=== PATIENT | female | born 1985 | race Caucasian/White ===

== ENCOUNTER 2021-04-21 11:01 | Outpatient (CLI) | payer MEDICAID, SELFPAY ==
--- NOTE | 2021-04-21 11:27 | MM_ITS ---
WS: [id number] BILATERAL SCREENING DIGITAL MAMMOGRAM WITH CAD HISTORY: SCREENING COMPARISON: None available. Bilateral CC and MLO views submitted. Computer aided detection analyzed. Breast composition: There are scattered areas of fibroglandular density. No suspicious masses, microc alcifications or architectural distortion. MM/[id number] IMPRESSION: BI-RADS: 1-Negative FOLLOW UP: 1 Year Follow-up
== END 2021-04-21 11:02 | disposition home or self-care (01) ==
LOC: RADSHAW 11:19
PROVIDERS: Visit Provider Nurse Practitioner Family
DX: Z12.31 Encounter for screening mammogram for malignant neoplasm of breast (principal)
CPT/HCPCS: 77067

== ENCOUNTER 2025-02-18 00:39 | Emergency (ER) | payer BC, MEDICAID, SELFPAY ==
[2025-02-18 00:49] VITALS: BP 120/61; PULSE 105; RESP 16; TEMP 36.4; O2SAT 100; BMI 34.3
[2025-02-18 03:54] VITALS: BP 139/92; PULSE 97; O2SAT 100
[2025-02-18 04:00] VITALS: BP 146/86; PULSE 99; O2SAT 96
--- NOTE | 2025-02-18 04:23 | ECG_ITS ---
[employer] [facility] Test Date: 2025-02-18 Pat Name: Jigna Huynh Department: Room: Gender: Female Field Service Coordinator: : 1985 Requested By: Jun Lin Order Number: [id number] Will MD: Gely Madrid M.D. Measurements Intervals [place] Rate: 68 P: 50 SD: 159 QRS: 35 QRSD: 114 T: 25 QT: 458 QTc: 491 Interpretive Statements SINUS RHYTHM WITH SINUS ARRHYTHMIA INCOMPLETE RIGHT BUNDLE BRANCH BLOCK [90+ ms QRS DURATION, TERMINAL R IN V1/V2, 40+ ms S IN I/aVL/V4/V5/V6] NONSPECIFIC T-WAVE ABNORMALITY PROLONGED QT INTERVAL No previous ECG available for comparison Electronically Signed On 02-19-2025 18:48:22 [employer]ASTE D[employer]ER by Gely Madrid M.D. [email or web address]
--- NOTE | 2025-02-18 04:28 | ED_ITS ---
HPI - Allergic Reaction 2 General: Chief complaint: Allergic Reaction Stated complaint: stated histamine attack. passed out Time Seen by Provider: 02/18/25 03:50 History of Present Illness: HPI narrative: 40-year-old female with no known past me dical history, presenting to the emergency department with an episode of loss of consciousness. Reports that around 6 PM she had a meal containing egg nog with ROM, as well as other food that she has consumed in the past, she went to bed around 11 PM after a shower and felt an acute onset of symptoms that she describes as rapid heartbeat, lightheadedness, floaters in her vision, diffuse shaking, she went to the bathroom and felt acutely lightheaded, lost consciousness. Her heard a thud, and found her unconscious leaning against the wall with vomit in her mouth, loss of consciousness short duration less than 1 minute with rapid return to normal baseline mental status, patient reports 2 episodes of watery diarrhea after the event, she does report a history over the past 2 years of other similar events although none caused full loss of consciousness and has not been evaluated by a doctor prior, she has no known history of drug allergies or arrhythmia other than mitral valve prolapse which has not been intervened on or required any significant management, she currently feels generally worn out but no other symptoms, she denies abdominal pain, she denies headache. Related Data Allergies Allergy/AdvReac Type Severity Reaction Status Date / Time No Known Allergies Allergy Verified 02/18/25 00:55 Physical Exam 2 Narrative: EXAM NARRATIVE: Gen: A&Ox4, no acute distress, nontoxic appearing HEENT: Normocephalic, atraumatic, no scleral icterus, external ears normal, moist mucous membranes Neck: Supple, full range of motion, no observable masses Lungs: No Respiratory distress, Lungs clear to auscultation bilaterally no rales, rhonchi, wheezing CV: Regular rate and rhythm, no murmur, no pitting edema to lower extremities bilaterally Abdomen: Soft, nondistended, nontender to palpation MSK: No joint swelling, FROM all 4 extremities Skin: No rashes, petechiae, lesions. Normal color per patient. Neuro: Alert and oriented, no slurred speech, sensation and strength grossly intact all 4 extremities Psych: Appropriate for situation. Course 2 Reevaluation(s): Reevaluation #1: Patient reevaluated, feels well, blood work showing nonspecific leukocytosis to 16, otherwise blood work normal with normal kidney function and liver function, EKG showing sinus rhythm with a sinus arrhythmia, incomplete right bundle unclear if new or old, will recommend patient follow-up with PCP for this finding for monitoring, stable for discharge with outpatient follow-up, monitoring of symptoms, return precautions. Time: 05:44 Vital Signs: Vital signs: Vital Signs Temperature 97.5 F L 02/18/25 00:49 Pulse Rate 97 02/18/25 03:54 Respiratory Rate 16 02/18/25 00:49 Blood Pressure 139/92 02/18/25 03:54 Pulse Oximetry 100 02/18/25 03:54 Oxygen Delivery Me thod Room Air 02/18/25 03:54 MDM - Allergic Reaction Medical Decision Making 40-year-old female with no significant past medical history presenting to the emergency department with an episode of loss of consciousness that she attributed to a possible allergic reaction or histamine release phenomenon, she reports episodes in the past over the last couple of years that did not lead to full loss of consciousness which were never fully medically evaluated. This evening she developed loss of consciousness with a prodrome, an episode of vomiting during the event and 2 episodes of diarrhea thereafter, rapid return to baseline mental status with no neurologic deficits, she currently feels worn out but is otherwise asymptomatic, her physical exam is benign, her EKG does not show signs of significant arrhythmia other than a minor sinus arrhythmia, she does have an incomplete right bundle branch block, her QT is mildly prolonged at 476 but not markedly so to the point where she would be at risk for malignant tachyarrhythmia, plan for IV hydration, check labs to rule out electrolyte derangements or AXEL, would anticipate recommending increased hydration, follow- up with PCP as well as referral to outpatient cardiology for evaluation. Lab Data Labs showing leukocytosis, no anemia, normal electrolytes, normal kidney function, normal liver function 02/18/25 04:49 02/18/25 04:49 Laboratory Results WBC 16.93 10^3/uL (3.29-11.43) H 02/18/25 04:49 RBC 4.43 10^6/uL (3.85-5.65) 02/18/25 04:49 Hgb 12.90 g/dL (11.27-16.99) 02/18/25 04:49 Hct 38.2 % (36-47) 02/18/25 04:49 MCV 86.2 fl (85-98) 02/18/25 04:49 MCH 29.1 pg (27-33) 02/18/25 04:49 MCHC 33.8 g/dL (30-55) 02/18/25 04:49 RDW 12.0 % (12.1-15.1) L 02/18/25 04:49 Plt Count 184 10^3/cmm (157-399) 02/18/25 04:49 MPV 8.0 fL (7.4-10.4) 02/18/25 04:49 Neut % (Auto) 87.7 % 02/18/25 04:49 Lymph % (Auto) 5.2 % 02/18/25 04:49 [place] % (Auto) 6.3 % 02/18/25 04:49 Eos % (Auto) 0.2 % 02/18/25 04:49 Baso % (Auto) 0.1 % 02/18/25 04:49 Neut # (Auto) 14.84 10^3/uL (1.8-7.7) H 02/18/25 04:49 Lymph # (Auto) 0.9 10^3/uL (0.8-4.8) 02/18/25 04:49 [place] # (Auto) 1.1 10^3/uL (0.2-0.9) H 02/18/25 04:49 Eos # (Auto) 0.0 10^3/uL (0.0-0.8) 02/18/25 04:49 Baso # (Auto) 0.0 10^3/uL (0.0-0.1) 02/18/25 04:49 Nucleated RBC % (auto) 0 % 02/18/25 04:49 Nucleated RBCs # 0.0 /100WBC 02/18/25 04:49 Sodium 141 mmol/L (136-145) 02/18/25 04:49 Potassium 4.1 mmol/L (3.5-5.1) 02/18/25 04:49 Chloride 106 mmol/L (98-107) 02/18/25 04:49 Carbon Dioxide 26 mmol/L (22-29) 02/18/25 04:49 Anion Gap 13.1 (5-19) 02/18/25 04:49 BUN 16 mg/dL (6-20) 02/18/25 04:49 Creatinine 0.6 mg/dL (0.5-0.9) 02/18/25 04:49 GFR Calculation 110.2 mL/min (90-130) 02/18/25 04:49 Glucose 108 mg/dL (65-115) 02/18/25 04:49 Calculated Osmolality 294 mOsm/kg (285-295) 02/18/25 04:49 Calcium 9.2 mg/dL (8.5-10.5) 02/18/25 04:49 Total Bilirubin 0.2 mg/dL (0.15-1.2) 02/18/25 04:49 AST 18 U/L (0-32) 02/18/25 04:49 ALT 17 U/L (0-33) 02/18/25 04:49 Alkaline Phosphatase 85 U/L (35-105) 02/18/25 04:49 Total Protein 6.9 g/dL (6.6-8.7) 02/18/25 04:49 Albumin 4.1 g/dL (3.5-5.2) 02/18/25 04:49 Globulin 2.8 g/dL (1.3-4.6) 02/18/25 04:49 No radiology studies performed this visit EKG Data EKG 1: I personally reviewed and interpreted this EKG as follows: EKG interpretation date: 02/18/25 EKG interpretation time: 04:23 Interpretation: Sinus rhythm at 60 bpm with sinus arrhythmia, no STEMI, incomplete right bundle branch block, mildly prolonged QT interval QTc 476, normal axis Discharge Plan Discharge Patient Disposition: Home Clinical Impression: Right bundle branch block Syncope Qualifiers: Syncope type: unspecified Qualified Code(s): R55 - Syncope and collapse Leukocytosis Qualifiers: Leukocytosis type: unspecified Qualified Code(s): D72.829 - Elevated white blood cell count, unspecified Condition: Stable Discharge Orders: Discharge ED (Routine); Ordered 02/18/25 Ordered By: Jun Lin Referrals: Gaona,Amalia, [facility] [Primary Care Provider, Nurse Practitioner] Patient Instructions: Patient Portal & Aranza Instructions, Syncope (DC) Print Language: Mongolian Coding Level of Care Code ED Forest Officer for [facility]
[2025-02-18 04:30] VITALS: BP 101/58; PULSE 53; O2SAT 100
[2025-02-18] MEDS: ondansetron 2 mg/ML SDV 2 mL 4 MG IVP (04:54)
[2025-02-18 05:00] VITALS: BP 118/76; PULSE 58; O2SAT 100
[2025-02-18 05:07] LABS: Hematocrit 38.2 % (36-47); Hemoglobin 12.90 g/dL (11.27-16.99); Mean Corpuscular HGB Conc 33.8 g/dL (30-55); Mean Corpuscular Hemoglobin 29.1 pg (27-33); Mean Corpuscular Volume 86.2 fl (85-98); Nucleated Red Blood Cells % 0 %; Platelet Count 184 10^3/cmm (157-399); Red Blood Count 4.43 10^6/uL (3.85-5.65); White Blood Count 16.93 10^3/uL (3.29-11.43)
[2025-02-18 05:27] LABS: Alanine Aminotransferase 17 U/L (0-33); Albumin Level 4.1 g/dL (3.5-5.2); Alkaline Phosphatase 85 U/L (35-105); Anion Gap 13.1 (5-19); Aspartate Amino Transferase 18 U/L (0-32); Blood Urea Nitrogen 16 mg/dL (6-20); Calcium 9.2 mg/dL (8.5-10.5); Carbon Dioxide 26 mmol/L (22-29); Chloride 106 mmol/L (98-107); Globulin 2.8 g/dL (1.3-4.6); Glucose 108 mg/dL (65-115); Osmolality Calculated 294 mOsm/kg (285-295); Potassium 4.1 mmol/L (3.5-5.1); Sodium 141 mmol/L (136-145); Total Protein 6.9 g/dL (6.6-8.7)
[2025-02-18 05:30] VITALS: BP 119/67; PULSE 66; O2SAT 100
== END 2025-02-18 06:07 | disposition home or self-care (01) ==
PROVIDERS: Emergency Provider Student in an Organized Health Care Education/Training Program; PCP Nurse Practitioner Family
DX: I45.10 Unspecified right bundle-branch block (principal); R55 Syncope and collapse; D72.829 Elevated white blood cell count, unspecified
CPT/HCPCS: 80053; 85025; 93005; 96374; 96375; 99284; J2405; J3490; J7030